=== PATIENT | male | born 1940 | race Caucasian/White ===

== ENCOUNTER → 2024-12-19 13:33 | Outpatient (BNVA) | payer MEDICARE, BC, SELFPAY | PROVIDERS: Visit Provider Emergency Medicine | DX: M18.12 Unilateral primary osteoarthritis of first carpometacarpal joint, left hand (principal); M79.5 Residual foreign body in soft tissue; R22.32 Localized swelling, mass and lump, left upper limb; D16.12 Benign neoplasm of short bones of left upper limb | CPT/HCPCS: 73130 ==